=== PATIENT | female | born 1940 | race African-American/Black ===

== ENCOUNTER 2016-05-15 10:52 | Outpatient (CLI) | payer MEDICARE, OTHER | END 2016-05-15 10:53 | LOC: POD 10:52 | PROVIDERS: ATTEND Podiatrist Public Medicine | DX: B35.1 Tinea unguium (principal); L84 Corns and callosities; L60.0 Ingrowing nail; M79.674 Pain in right toe(s); M79.675 Pain in left toe(s) | CPT/HCPCS: 11721; G0463 ==

== ENCOUNTER 2016-08-21 11:11 | Outpatient (CLI) | payer MEDICARE, OTHER | END 2016-08-21 11:12 | LOC: POD 11:11 | PROVIDERS: ATTEND Podiatrist Public Medicine | DX: B35.1 Tinea unguium (principal); L60.0 Ingrowing nail; L84 Corns and callosities; M79.675 Pain in left toe(s); M79.674 Pain in right toe(s) | CPT/HCPCS: 11721; G0463 ==

== ENCOUNTER 2016-11-20 11:01 | Outpatient (CLI) | payer MEDICARE, OTHER | END 2016-11-20 11:02 | LOC: POD 11:01 | PROVIDERS: ATTEND Podiatrist Public Medicine | DX: B35.1 Tinea unguium (principal); L60.0 Ingrowing nail; L84 Corns and callosities; M79.674 Pain in right toe(s); M79.675 Pain in left toe(s) | CPT/HCPCS: G0463 ==

== ENCOUNTER 2017-04-23 09:58 | Outpatient (CLI) | payer MEDICARE, OTHER | END 2017-04-23 10:00 | LOC: POD 09:58 | PROVIDERS: ATTEND Podiatrist Public Medicine | DX: B35.1 Tinea unguium (principal); L84 Corns and callosities; L60.0 Ingrowing nail; M79.674 Pain in right toe(s); M79.675 Pain in left toe(s); M79.609 Pain in unspecified limb | CPT/HCPCS: 11721; G0463 ==

== ENCOUNTER 2017-07-23 11:02 | Outpatient (CLI) | payer MEDICARE, OTHER | END 2017-07-23 11:05 | LOC: POD 11:02 | PROVIDERS: ATTEND Podiatrist Public Medicine | DX: B35.1 Tinea unguium (principal); L84 Corns and callosities; L60.0 Ingrowing nail; M79.674 Pain in right toe(s); M79.675 Pain in left toe(s); M79.609 Pain in unspecified limb | CPT/HCPCS: 11721; G0463 ==